=== PATIENT | female | born 1985 ===

== ENCOUNTER 2022-10-09 06:57 | Day surgery (SDC) | payer OTHER ==
[~2022-10-09] VITALS: Ht 170.2 cm; Wt 68.0 kg
[~2022-10-09 06:57] MED LIST: SYNTHROID100 MCG PO
[2022-10-09] MEDS ORDERED: TRAMADOL HCL50 MG PO (12:45)
== END 2022-10-09 17:15 | disposition home or self-care (01) ==
LOC: CIR.AMB 06:57
PROVIDERS: ATTEND Surgery
DX: K62.5 Hemorrhage of anus and rectum (principal); K64.2 Third degree hemorrhoids; K64.8 Other hemorrhoids; K64.4 Residual hemorrhoidal skin tags; Z20.822 Contact with and (suspected) exposure to COVID-19; I10 Essential (primary) hypertension